=== PATIENT | male | born 1970 | race African-American/Black ===

== ENCOUNTER 2022-10-16 14:38 | Inpatient (IN) | payer OTHER, MEDICAID, SELFPAY ==
[2022-10-16] VITALS (25 sets, daily range): BP systolic 117–152; BP diastolic 64–102; PULSE 95–109; RESP 13–35; TEMP 36.8–39.6; O2SAT 88–100; BMI 46.2
--- NOTE | 2022-10-16 15:08 | DI.RAD.S_ITS ---
PROCEDURE: XR CHEST 1V INDICATIONS: chest pain TECHNIQUE: One view of the chest was acquired. COMPARISON: None. FINDINGS: Surgical changes and devices: None. Lungs and pleura: Lungs are clear. Hypoventilatory changes with crowding of the bronchovascular markings and basilar atelectasis. No pleural effusions or pneumothorax. Mediastinum: Mediastinal contours appear normal. Heart size is normal. Bones and chest wall: No suspicious bony lesions. Overlying soft tissues appear unremarkable. IMPRESSION: Hypoventilatory changes without evidence of an acute cardiopulmonary abnormality. Dictated by: Oni Alamo D.O. on 10/16/2022 at 15:09 Approved by: Oni Alamo D.O. on 10/16/2022 at 15:10
[2022-10-16 15:21] LABS: INR 1.4 (0.9-1.3); Prothrombin Time 15.6 SECONDS (10.1-12.7)
[2022-10-16 15:24] LABS: PTT Partial Thromboplastin Tim 33 SECONDS (26-36)
[2022-10-16 15:25] LABS: Add Manual Diff / Slide Review NO; Basophils Absolute Auto 200 /uL (0-100); Basophils Percent Auto 1.1 % (0-2); Eosinophils Absolute Auto 100 /uL (0-450); Eosinophils Percent Auto 0.4 % (2-4); Hematocrit 42.5 % (41-53); Hemoglobin 13.9 g/dL (13.5-17.5); Lymphocytes Absolute Auto 2500 /uL (1100-4500); Lymphocytes Percent Auto 17.6 % (25-40); Mean Corpuscular HGB Conc 32.8 % (30-36); Mean Corpuscular Hemoglobin 26.7 PG (26-34); Mean Corpuscular Volume 81.5 fL (80-100); Monocytes Absolute Auto 1200 /uL (0-900); Monocytes Percent Auto 8.4 % (3-14); Neutrophils Absolute Auto 10200 /uL (1500-7000); Neutrophils Percent Auto 72.5 % (50-75); Platelet Count 219 X10^3/uL (150-400); Red Blood Cell Count 5.21 X10^6/uL (4.5-5.9); Red Cell Distribution Width 12.5 % (11.6-14.8); White Blood Cell Count 14.1 X10^3/uL (4.5-11.0)
[2022-10-16 15:31] LABS: Lactate (Lactic Acid) 2.8 mmol/L (0.7-2.1)
[2022-10-16 15:33] LABS: Alanine Aminotransferase 24 IU/L (<50); Albumin 3.9 g/dL (3.5-5.0); Alkaline Phosphatase 154 U/L (38-126); Aspartate Aminotransferase 21 IU/L (17-59); Bilirubin Total 0.5 mg/dL (0.2-1.3); Blood Urea Nitrogen 12 mg/dL (9-20); Carbon Dioxide 27 mmol/L (22-32); Chloride 100 mmol/L (98-107); Creatine Kinase 216 U/L (55-170); Estimated Glomerular Filt Rate > 60 mL/min (>60); Globulin 4.1 g/dL (1.7-4.1); Glucose 334 mg/dL (70-100); HEMOLYSIS < 15 (0-50); Lipase 221 U/L (23-300); Magnesium 1.7 mg/dL (1.6-2.3); Potassium 4.1 mmol/L (3.4-5.1); Sodium 136 mmol/L (137-145)
[2022-10-16] MEDS: SODIUM CHLORIDE 0.9% 1,000 ML 1000 ML IV (15:39)
[2022-10-16 15:44] LABS: Troponin I < 0.012 ng/mL (0.01-0.034)
[2022-10-16 15:48] LABS: CKMB % Relative Index 0.4 % (1.5-5.0); Creatine Kinase MB 0.78 ng/mL (<2.37)
[2022-10-16 15:50] LABS: Procalcitonin 0.12 ng/mL (<0.5)
--- NOTE | 2022-10-16 15:50 | ED.CHESTPAIN ---
HPI - Chest Pain General Chief Complaint: Chest Pain Stated Complaint: Chest pain Time Seen by Provider: 10/16/22 15:23 Source: patient Mode of arrival: Wheelchair Limitations: no limitations History of Present Illness HPI narrative: 52-year-old male with history of diabetes, hypertension, dyslipidemia and prior DVT on Eliquis, patient notes he was on Lantus and regular acting insulin but has not been using it. He is still on oral medication for his diabetes. Patient presents with several complaints, left-sided chest for past week that has been intermittent with occasional shortness of breath. Denies radiation. He states he passes out but unclear if he means he falls asleep or actually passes out. He denies any falls. Patient states he has a known blood clot in his right leg and has been on Eliquis, he states he is had some increased swelling and pain in his left leg. Patient also notes he is had pain on the left lower abdomen for the past week with some fullness and it feels hard which he states is new and started having drainage that has been purulent in the past week. He denies fevers or chills. He denies nausea or vomiting. He denies diarrhea, constipation black or bloody stools. He denies any dysuria urgency frequency or difficulty with urination. He denies prior infections of his skin. Patient states no prior histories of strokes or heart attacks, no chronic kidney disease, denies any cardiac stents. Is not sure why he has a blood clot in his leg he states he was seen and taking care of [facility] in [place] where he lives. He drove up to visit family last night they wanted to bring him into the hospital at that time but he was not willing and today convinced him to come be seen. He states he has not allergy to lisinopril, anaphylaxis no tobacco denies alcohol or illicit. States his primary care is through [facility] in [place]. Patient states he is taking his Eliquis daily. Related Data Home Medications Medication Instructions Recorded Confirmed amlodipine 10 mg tablet 10 mg PO DAILY 10/16/22 10/16/22 apixaban 5 mg tablet (Eliquis) 5 mg PO DAILY 10/16/22 10/16/22 atorvastatin 40 mg tablet 80 mg PO BEDTIME 10/16/22 10/16/22 metformin 1,000 mg tablet 1,000 mg PO BID 10/16/22 10/16/22 sitagliptin phosphate 100 mg 100 mg PO DAILY 10/16/22 10/16/22 tablet (Januvia) Allergies Allergy/AdvReac Type Severity Reaction Status Date / Time lisinopril Allergy Anaphylaxis Verified 10/16/22 15:06 Review of Systems Review of Systems ROS Unobtainable: All systems reviewed & are unremarkable except as noted in HPI and below Patient History Medical History Diabetes Hypercholesteremia Hypertension Social History Smoking Status: Current every day smoker Smoking Status: Current every day smoker alcohol intake frequency: other Substance Use Type: does not use Exam Narrative Exam Narrative: GEN: Obese male, alert and oriented x 3, patient appears to be in [id number] distress. HEENT: Atraumatic, pupils are equal round reactive to light, extraocular movements are intact, nares are clear, there is no conjunctival pallor. HEART: Slightly tachycardic, 100-105 range, Regular rate and rhythm without murmur, clicks, rubs. LUNGS:Lungs clear to auscultation, no wheezes, rales, crackles, chest moves symmetrically, no tachypnea or accessory muscle use. ABD:bowel sounds normal, soft, patient is tender in left lower quadrant particularly underneath the pannus, patient has small opening with purulent drainage that drains easily when touched. Patient has some induration, difficult to tell size secondary to body habitus, no guarding, rebound, rigidity, no masses noted, no hepatosplenomegaly :No CVA tenderness MSCL: Non-tender, no muscle atrophy, range of motion. Patient has bilateral lower extremity edema, nonpitting with chronic venous stasis changes periods NEURO:CN 2-12 intact, sensation normal. SKIN: See above. Initial Vital Signs Initial Vital Signs: Vital Signs Temperature 98.6 F 10/16/22 14:59 Pulse Rate 102 H 10/16/22 14:59 Respiratory Rate 18 10/16/22 14:59 Blood Pressure 131/77 10/16/22 14:59 Pulse Oximetry 100 10/16/22 14:59 Oxygen Delivery Method Room Air 10/16/22 14:59 Course Orders Ordered: ED Orders 10/16/22 15:00 BNP [NT-proBNP (BNP-Adult 18+)] Stat Complete Blood Count AUTO DIFF Stat Comprehensive Metabolic Panel Stat Lactate (Lactic Acid) Stat Lipase Stat Magnesium Stat PTT Partial Thromboplastin Zac Stat Procalcitonin Stat Prothrombin Time INR Stat Troponin & CK Cardiac Panel Stat 10/16/22 15:08 XR chest 1V Stat Wound Culture and Gram Stain Stat 10/16/22 15:20 Blood Culture Stat 10/16/22 16:05 CT abdomen pelvis w con Stat CT angio chest PE protocol Stat 10/16/22 16:15 COVID19 -Nasal RAPID Stat Urinalysis and Microscopic Stat 10/16/22 17:11 EKG-12 Lead Stat 10/16/22 17:30 Trop I [Troponin I] Stat Discontinued Medications Aspirin (Aspirin 81 Mg Chew Tab) 324 mg PO NOW ONE Stop: 10/16/22 15:09 Last Admin: 10/16/22 16:28 Dose: Not Given Documented By: LUCIANO Sodium Chloride (Normal Saline 0.9%) 1,000 mls @ 1,000 mls/hr IV BOLUS ONE Stop: 10/16/22 16:35 Last Infusion: 10/16/22 16:37 Dose: 0 mls/hr Documented By: JOSE RAMON Admin: 10/16/22 15:39 Dose: 1,000 mls/hr Documented By: JOSE RAMON Piperacillin Sod/Tazobactam (Sod 4.5 gm/ Sodium Chloride) 100 mls @ 200 mls/hr IV NOW ONE Stop: 10/16/22 16:06 Last Infusion: 10/16/22 17:39 Dose: 0 mls/hr Documented By: Admin: 10/16/22 16:57 Dose: 200 mls/hr Documented By: LUCIANO Vancomycin HCl/Dextrose (Vancomycin) 2,000 mg in 400 mls @ 200 mls/hr IV NOW ONE Stop: 10/16/22 18:06 Last Admin: 10/16/22 17:39 Dose: 200 mls/hr Documented By: LUCIANO Vital Signs Vital signs: Vital Signs - 8 hr 10/16/22 14:59 10/16/22 15:08 10/16/22 15:15 Temperature 98.6 F Pulse Rate 102 H 101 H 103 H Respiratory Rate 18 25 H 32 H Blood Pressure 131/77 Pulse Oximetry 100 99 99 Oxygen Delivery Method Room Air 10/16/22 15:30 10/16/22 15:34 10/16/22 15:34 Temperature Pulse Rate 102 H 102 H Respiratory Rate 35 H 32 H Blood Pressure 137/73 Pulse Oximetry 99 97 Oxygen Delivery Method Room Air Room Air 10/16/22 15:45 10/16/22 15:45 10/16/22 16:00 Temperature Pulse Rate 109 H Respiratory Rate 27 H Blood Pressure 150/75 H 145/69 H Pulse Oximetry 100 Oxygen Delivery Method 10/16/22 16:00 10/16/22 16:15 10/16/22 16:15 Temperature Pulse Rate 107 H 105 H Respiratory Rate 20 15 Blood Pressure 146/68 H Pulse Oximetry 100 100 Oxygen Delivery Method 10/16/22 16:30 10/16/22 16:30 10/16/22 16:48 Temperature Pulse Rate 106 H 106 H Respiratory Rate 30 H Blood Pressure 143/65 H Pulse Oximetry 99 Oxygen Delivery Method 10/16/22 17:00 10/16/22 17:15 10/16/22 17:30 Temperature Pulse Rate 104 H 101 H 101 H Respiratory Rate 13 26 H 17 Blood Pressure Pulse Oximetry 100 99 100 Oxygen Delivery Method 10/16/22 17:39 10/16/22 17:39 10/16/22 17:45 Temperature Pulse Rate 104 H 107 H Respiratory Rate 26 H 20 Blood Pressure 149/82 H Pulse Oximetry 99 99 Oxygen Delivery Method 10/16/22 17:46 10/16/22 17:46 10/16/22 18:00 Temperature Pulse Rate 106 H Respiratory Rate Blood Pressure 148/102 H 133/76 Pulse Oximetry 99 Oxygen Delivery Method Room Air 10/16/22 18:00 Temperature Pulse Rate 101 H Respiratory Rate 26 H Blood Pressure Pulse Oximetry 100 Oxygen Delivery Method MDM - Chest Pain Lab Data 10/16/22 15:00 10/16/22 15:00 Labs: Lab Results 10/16/22 10/16/22 10/16/22 Range/Units 15:00 15:00 15:00 WBC 14.1 H (4.5-11.0) X10^3/uL RBC 5.21 (4.5-5.9) X10^6/uL Hgb 13.9 (13.5-17.5) g/dL Hct 42.5 (41-53) % MCV 81.5 (80-100) fL MCH 26.7 (26-34) PG MCHC 32.8 (30-36) % RDW 12.5 (11.6-14.8) % Plt Count 219 (150-400) X10^3/uL Neut % (Auto) 72.5 (50-75) % Lymph % (Auto) 17.6 L (25-40) % Brooke % (Auto) 8.4 (3-14) % Eos % (Auto) 0.4 L (2-4) % Baso % (Auto) 1.1 (0-2) % Neut # (Auto) 14471 H (6848-0913) /uL Lymph # (Auto) 2500 (7725-7003) /uL Brooke # (Auto) 1200 H (0-900) /uL Eos # (Auto) 100 (0-450) /uL Baso # (Auto) 200 H (0-100) /uL PT 15.6 H (10.1-12.7) SECONDS INR 1.4 H (0.9-1.3) APTT 33 (26-36) SECONDS Sodium 136 L (137-145) mmol/L Potassium 4.1 (3.4-5.1) mmol/L Chloride 100 (98-107) mmol/L Carbon Dioxide 27 (22-32) mmol/L BUN 12 (9-20) mg/dL Creatinine 0.80 (0.66-1.25) mg/dL Estimated GFR > 60 (>60) mL/min BUN/Creatinine Ratio 15.0 (6-22) Glucose 334 H (70-100) mg/dL Lactate (0.7-2.1) mmol/L Calcium 9.0 (8.4-10.2) mg/dL Magnesium 1.7 (1.6-2.3) mg/dL Total Bilirubin 0.5 (0.2-1.3) mg/dL AST 21 (17-59) IU/L ALT 24 (<50) IU/L Alkaline Phosphatase 154 H (38-126) U/L Total Creatine Kinase 216 H (55-170) U/L CK-MB (CK-2) 0.78 (<2.37) ng/mL CK-MB (CK-2) Rel Index 0.4 L (1.5-5.0) % Troponin I < 0.012 (0.01-0.034) ng/mL NT-Pro-B Natriuret Pep (<125) pg/mL Total Protein 8.0 (6.3-8.2) g/dL Albumin 3.9 (3.5-5.0) g/dL Globulin 4.1 (1.7-4.1) g/dL Albumin/Globulin Ratio 1.0 (1.0-2.8) Lipase 221 (23-300) U/L Procalcitonin (<0.5) ng/mL Urine Color Urine Appearance Urine pH (4.5-8.0) Ur Specific [place] (1.000-1.035) Urine Protein (Negative) Urine Glucose (UA) (Negative) g/dL Urine Ketones (NEGATIVE) Urine Occult Blood (Negative) Urine Nitrate (Negative) Urine Bilirubin (NEGATIVE) Urine Urobilinogen (0.2) E.U./dL Ur Leukocyte Esterase (NEGATIVE) Urine RBC (0-5/HPF) Urine WBC (0-5/HPF) Ur Squamous Epith Cells (0-5/HPF) Urine Bacteria (None) Ur Culture Indicated? SARS-CoV-2 (PCR) (Negative) 10/16/22 10/16/22 10/16/22 Range/Units 15:00 15:00 15:00 WBC (4.5-11.0) X10^3/uL RBC (4.5-5.9) X10^6/uL Hgb (13.5-17.5) g/dL Hct (41-53) % MCV (80-100) fL MCH (26-34) PG MCHC (30-36) % RDW (11.6-14.8) % Plt Count (150-400) X10^3/uL Neut % (Auto) (50-75) % Lymph % (Auto) (25-40) % Brooke % (Auto) (3-14) % Eos % (Auto) (2-4) % Baso % (Auto) (0-2) % Neut # (Auto) (6105-6807) /uL Lymph # (Auto) (0589-4792) /uL Brooke # (Auto) (0-900) /uL Eos # (Auto) (0-450) /uL Baso # (Auto) (0-100) /uL PT (10.1-12.7) SECONDS INR (0.9-1.3) APTT (26-36) SECONDS Sodium (137-145) mmol/L Potassium (3.4-5.1) mmol/L Chloride (98-107) mmol/L Carbon Dioxide (22-32) mmol/L BUN (9-20) mg/dL Creatinine (0.66-1.25) mg/dL Estimated GFR (>60) mL/min BUN/Creatinine Ratio (6-22) Glucose (70-100) mg/dL Lactate 2.8 H (0.7-2.1) mmol/L Calcium (8.4-10.2) mg/dL Magnesium (1.6-2.3) mg/dL Total Bilirubin (0.2-1.3) mg/dL AST (17-59) IU/L ALT (<50) IU/L Alkaline Phosphatase (38-126) U/L Total Creatine Kinase (55-170) U/L CK-MB (CK-2) (<2.37) ng/mL CK-MB (CK-2) Rel Index (1.5-5.0) % Troponin I (0.01-0.034) ng/mL NT-Pro-B Natriuret Pep 39 (<125) pg/mL Total Protein (6.3-8.2) g/dL Albumin (3.5-5.0) g/dL Globulin (1.7-4.1) g/dL Albumin/Globulin Ratio (1.0-2.8) Lipase (23-300) U/L Procalcitonin 0.12 (<0.5) ng/mL Urine Color Urine Appearance Urine pH (4.5-8.0) Ur Specific [place] (1.000-1.035) Urine Protein (Negative) Urine Glucose (UA) (Negative) g/dL Urine Ketones (NEGATIVE) Urine Occult Blood (Negative) Urine Nitrate (Negative) Urine Bilirubin (NEGATIVE) Urine Urobilinogen (0.2) E.U./dL Ur Leukocyte Esterase (NEGATIVE) Urine RBC (0-5/HPF) Urine WBC (0-5/HPF) Ur Squamous Epith Cells (0-5/HPF) Urine Bacteria (None) Ur Culture Indicated? SARS-CoV-2 (PCR) (Negative) 04/03/0210/16/22 10/16/22 Range/Units 16:15 16:15 17:30 WBC (4.5-11.0) X10^3/uL RBC (4.5-5.9) X10^6/uL Hgb (13.5-17.5) g/dL Hct (41-53) % MCV (80-100) fL MCH (26-34) PG MCHC (30-36) % RDW (11.6-14.8) % Plt Count (150-400) X10^3/uL Neut % (Auto) (50-75) % Lymph % (Auto) (25-40) % Brooke % (Auto) (3-14) % Eos % (Auto) (2-4) % Baso % (Auto) (0-2) % Neut # (Auto) (0188-4571) /uL Lymph # (Auto) (1589-7639) /uL Brooke # (Auto) (0-900) /uL Eos # (Auto) (0-450) /uL Baso # (Auto) (0-100) /uL PT (10.1-12.7) SECONDS INR (0.9-1.3) APTT (26-36) SECONDS Sodium (137-145) mmol/L Potassium (3.4-5.1) mmol/L Chloride (98-107) mmol/L Carbon Dioxide (22-32) mmol/L BUN (9-20) mg/dL Creatinine (0.66-1.25) mg/dL Estimated GFR (>60) mL/min BUN/Creatinine Ratio (6-22) Glucose (70-100) mg/dL Lactate (0.7-2.1) mmol/L Calcium (8.4-10.2) mg/dL Magnesium (1.6-2.3) mg/dL Total Bilirubin (0.2-1.3) mg/dL AST (17-59) IU/L ALT (<50) IU/L Alkaline Phosphatase (38-126) U/L Total Creatine Kinase (55-170) U/L CK-MB (CK-2) (<2.37) ng/mL CK-MB (CK-2) Rel Index (1.5-5.0) % Troponin I < 0.012 (0.01-0.034) ng/mL NT-Pro-B Natriuret Pep (<125) pg/mL Total Protein (6.3-8.2) g/dL Albumin (3.5-5.0) g/dL Globulin (1.7-4.1) g/dL Albumin/Globulin Ratio (1.0-2.8) Lipase (23-300) U/L Procalcitonin (<0.5) ng/mL Urine Color Yellow Urine Appearance Clear Urine pH 6.0 (4.5-8.0) Ur Specific [place] 1.010 (1.000-1.035) Urine Protein Negative (Negative) Urine Glucose (UA) 3+ H (Negative) g/dL Urine Ketones Negative (NEGATIVE) Urine Occult Blood Negative (Negative) Urine Nitrate Negative (Negative) Urine Bilirubin Negative (NEGATIVE) Urine Urobilinogen 4.0 H (0.2) E.U./dL Ur Leukocyte Esterase Negative (NEGATIVE) Urine RBC 0-1/hpf (0-5/HPF) Urine WBC 1-5/hpf (0-5/HPF) Ur Squamous Epith Cells 1-5 /hpf (0-5/HPF) Urine Bacteria Occasional (0-1) (None) Ur Culture Indicated? Cult not indicated SARS-CoV-2 (PCR) Negative (Negative) 10/16/22 Range/Units 17:30 WBC (4.5-11.0) X10^3/uL RBC (4.5-5.9) X10^6/uL Hgb (13.5-17.5) g/dL Hct (41-53) % MCV (80-100) fL MCH (26-34) PG MCHC (30-36) % RDW (11.6-14.8) % Plt Count (150-400) X10^3/uL Neut % (Auto) (50-75) % Lymph % (Auto) (25-40) % Brooke % (Auto) (3-14) % Eos % (Auto) (2-4) % Baso % (Auto) (0-2) % Neut # (Auto) (5267-6922) /uL Lymph # (Auto) (5947-5137) /uL Brooke # (Auto) (0-900) /uL Eos # (Auto) (0-450) /uL Baso # (Auto) (0-100) /uL PT (10.1-12.7) SECONDS INR (0.9-1.3) APTT (26-36) SECONDS Sodium (137-145) mmol/L Potassium (3.4-5.1) mmol/L Chloride (98-107) mmol/L Carbon Dioxide (22-32) mmol/L BUN (9-20) mg/dL Creatinine (0.66-1.25) mg/dL Estimated GFR (>60) mL/min BUN/Creatinine Ratio (6-22) Glucose (70-100) mg/dL Lactate 3.5 H (0.7-2.1) mmol/L Calcium (8.4-10.2) mg/dL Magnesium (1.6-2.3) mg/dL Total Bilirubin (0.2-1.3) mg/dL AST (17-59) IU/L ALT (<50) IU/L Alkaline Phosphatase (38-126) U/L Total Creatine Kinase (55-170) U/L CK-MB (CK-2) (<2.37) ng/mL CK-MB (CK-2) Rel Index (1.5-5.0) % Troponin I (0.01-0.034) ng/mL NT-Pro-B Natriuret Pep (<125) pg/mL Total Protein (6.3-8.2) g/dL Albumin (3.5-5.0) g/dL Globulin (1.7-4.1) g/dL Albumin/Globulin Ratio (1.0-2.8) Lipase (23-300) U/L Procalcitonin (<0.5) ng/mL Urine Color Urine Appearance Urine pH (4.5-8.0) Ur Specific [place] (1.000-1.035) Urine Protein (Negative) Urine Glucose (UA) (Negative) g/dL Urine Ketones (NEGATIVE) Urine Occult Blood (Negative) Urine Nitrate (Negative) Urine Bilirubin (NEGATIVE) Urine Urobilinogen (0.2) E.U./dL Ur Leukocyte Esterase (NEGATIVE) Urine RBC (0-5/HPF) Urine WBC (0-5/HPF) Ur Squamous Epith Cells (0-5/HPF) Urine Bacteria (None) Ur Culture Indicated? SARS-CoV-2 (PCR) (Negative) Imaging Data Chest x-ray: Radiologist's Impression: [address] [address] XRay Report Signed Patient: Oni Cabezas MR#: [id number] : 1970 Acct:[id number] Age/Sex: 52 / M Date of Service: 10/16/22 Loc: ED Accession Number: [id number] ?? Procedure: XR chest 1V Ordering Provider: Nabila Degroot D.O. PROCEDURE:? XR CHEST 1V ? INDICATIONS:? chest pain ? TECHNIQUE:? One view of the chest was acquired.? ? COMPARISON:? None. ? FINDINGS:? ? Surgical changes and devices:? None.? ? Lungs and pleura:? Lungs are clear.? Hypoventilatory changes with crowding of the bronchovascular markings and basilar atelectasis.? No pleural effusions or pneumothorax.? ? ? Mediastinum:? Mediastinal contours appear normal.? Heart size is normal.? ? Bones and chest wall:? No suspicious bony lesions.? Overlying soft tissues appear unremarkable.? ? IMPRESSION:? ? Hypoventilatory changes without evidence of an acute cardiopulmonary abnormality. ? ? Dictated by: Oni Alamo D.O. on 10/16/2022 at 15:09 ? ? Approved by: Oni Alamo D.O. on 10/16/2022 at 15:10?? ECG Data Attestation: I personally reviewed and interpreted this ECG as follows: Prior ECG tracings: not available for review Interpretation: Sinus tachycardia rate of 102 PA 158 QRS of [address]TC [address] No acute ST elevation or depression. No prior for comparison. Sinus tachycardia rate of 103 PA 158 QRS of 104 and QTC of 474. Patient does not have any acute or dynamic changes appear similar to prior EKG from earlier today. MDM Narrative Medical decision making narrative: This is a 52-year-old male diabetic, hypertension, dyslipidemia, chronic obesity outpatient has had significant weight loss over the years. Patient presents with chest pain, shortness of breath as well as abdominal pain and area of what is likely abscess draining. Culture was sent from the site. Patient's initial workup included CBC, CMP, INR these do not show major changes except for glucose of 338, anion gap of 9 with a CO2 of 27, LFTs were negative except for alk-phos of 154, total CK was 214- troponin and BNP was 39. Pro CT was negative at 0.12, patient did have blood cultures obtained, wound culture was sent from the site on his left lower abdomen. Lactate was elevated at 2.8. EKG has sinus tachycardia, no priors for comparison. Chest x-ray shows hypoventilated or changes no clear infection. Patient does have a known prior blood clot in his right lower extremity he has noted some pain in his left leg as well as swelling. Plan for CT angio of his chest for his chest pain and shortness of breath to rule out PE and repeat troponin at hours. along with EKG, troponins negative. No dynamic EKG changes. Secondary to habitus other is an area that is draining unclear the size so CT abdomen pelvis was obtained. Patient received a L bolus but does have some risk for CHF so not given a full 30 cc/kilos bolus, covered with antibiotics Zosyn and vanco. CT chest nondiagnostic for PE, Hounsfield units were only 74. No other acute changes appreciated no right heart strain. CT abdomen pelvis does not show loculated fluid collection or fluid collection but does show changes consistent with a cellulitis with a no other acute intra-abdominal processes noted. Patient has not been hypotensive he has been slightly tachycardic the whole time, no hypoxia, afebrile but lactate did trend upwards. Case was discussed with Dr. Whitaker who accepts for admission. Reviewed CT findings patient has negative troponin negative BNP has been stated taking his Eliquis regularly she will evaluate the patient decide if she wants repeat CT scan but felt to be less likely source of his tachycardia and sepsis likely source. Accepted for inpatient admission. Discharge Plan Departure Patient Disposition: Admitted As Inpatient Clinical Impression: Cellulitis of abdominal wall, Sepsis Admit Date/Time: 10/16/22 18:11 Admit Provider: Anna Whitaker
[2022-10-16 16:04] LABS: NT-proBNP (BNP-Adult 18+) 39 pg/mL (<125)
--- NOTE | 2022-10-16 16:05 | DI.CT.S_ITS ---
PROCEDURE: CT ANGIO CHEST PE PROTOCOL INDICATIONS: cp, sob, hx of dvt TECHNIQUE: After the administration of intravenous contrast, 2 mm thick sections acquired from the pulmonary apices to the posterior costophrenic angles. 3-dimensional maximum intensity projection (MIP) coronal and sagittal reformats were then acquired through the thorax. For radiation dose reduction, the following was used: automated exposure control, adjustment of mA and/or kV according to patient size. COMPARISON: [facility], CT, CT ABDOMEN PELVIS W CON, 10/16/2022, 16:09. FINDINGS: Image quality: Nondiagnostic for exclusion of pulmonary embolus given Hounsfield units within the main pulmonary artery only measures 74 Hounsfield units. Pulmonary arteries: Pulmonary arteries are normal in size. Lungs and pleura: Lungs are clear. No pleural effusions or pneumothorax. Central and peripheral airways are patent. Punctate left upper lobe calcified granuloma. No suspicious nodules. Mediastinum: Heart size is normal, without pericardial effusion. No evidence of right heart strain. No mediastinal or hilar adenopathy. Thoracic aorta is normal in caliber and enhancement. Esophagus is normal in caliber, without hiatal hernia. Bones and chest wall: No suspicious bony lesions. Ribs and thoracic spine appear intact throughout. Thyroid gland is unremarkable. No axillary or supraclavicular adenopathy. Abdomen: Nodularity of the right adrenal gland measuring greater than 10 Hounsfield units. Please see same day CT abdomen pelvis for further findings. IMPRESSION: Inadequate study for evaluation of pulmonary embolus. No evidence of right heart strain. If clinically warranted, consider repeat. Otherwise no evidence of an acute intrathoracic abnormality. Dictated by: Oni Alamo D.O. on 10/16/2022 at 16:18 Approved by: Oni Alamo D.O. on 10/16/2022 at 16:28
--- NOTE | 2022-10-16 16:05 | DI.CT.S_ITS ---
PROCEDURE: CT ABDOMEN PELVIS W CON INDICATIONS: left sided abd wall vs intra ? abscess, + driainage. TECHNIQUE: After the administration of intravenous contrast, axial sections acquired from the lung bases to the pubic symphysis. Coronal and sagittal reformats were performed. For radiation dose reduction, the following was used: automated exposure control, adjustment of mA and/or kV according to patient size. COMPARISON: None. FINDINGS: Image quality: Excellent. Lung bases: Unremarkable. Heart: No significant findings. ABDOMEN: Liver: Unremarkable. Gallbladder: Unremarkable Biliary ducts: Unremarkable. Pancreas: Unremarkable. Spleen: Punctate calcifications consistent with prior granulomatous disease. Adrenal Glands: Right adrenal gland nodule measuring 3.0 x 2.0 cm measuring approximately 28 Hounsfield units. The left adrenal gland is unremarkable. Kidneys and Ureters: Fluid density cystic lesion within the anterior interpolar region of the left kidney consistent with a simple cyst. No suspicious abnormality. No hydronephrosis. Stomach and Bowel: Stomach and small bowel are unremarkable. No evidence of obstruction. Moderate to the advance stool burden throughout the colon. No wall thickening or surrounding inflammation. No ascites or pneumoperitoneum. Peritoneum: No abnormal intraperitoneal fluid. No free air. Ventral Wall: Large fat containing umbilical hernia. Abdominal Nodes: No retroperitoneal or mesenteric adenopathy by size criteria. Vessels: Aorta and inferior vena cava are normal in size. PELVIS: Pelvic Organs: Unremarkable. Bladder: Unremarkable. Pelvic Nodes: No enlarged lymph nodes. Miscellaneous: Nonspecific soft tissue stranding noted within the left flank extending to the inguinal region. There are a few mildly enlarged inguinal lymph nodes. Bones: Degenerative changes without acute osseous abnormality or aggressive appearing osseous lesion. IMPRESSION: Non-specific soft tissue inflammation overlying the left flank extending into the left inguinal region with likely reactive inguinal adenopathy. Recommend clinical correlation for infectious or inflammatory process. No focal fluid to suggest abscess. Large periumbilical fat containing hernia. Indeterminate 3 cm right adrenal nodule. Recommend dedicated outpatient adrenal CT or MRI. Dictated by: Oni Alamo D.O. on 10/16/2022 at 16:28 Approved by: Oni Alamo D.O. on 10/16/2022 at 16:36
[2022-10-16 16:46] LABS: Appearance Urine UA CLEAR; Bilirubin Urine UA NEGATIVE (NEGATIVE); Color Urine UA YELLOW; Glucose Urine UA 3+ g/dL (Negative); Ketones Urine UA NEGATIVE (NEGATIVE); Leukocyte Esterase Urine UA NEGATIVE (NEGATIVE); Nitrite Urine UA NEGATIVE (Negative); Occult Blood Urine UA NEGATIVE (Negative); Protein Urine UA NEGATIVE (Negative)
[2022-10-16 16:50] LABS: Bacteria Urine Occasional (0-1); Culture Indicated Urine Cult Not Indicated; RBC Urine 0-1/HPF (0-5/HPF); Squamous Epithelial Cell Urine 1-5 /HPF (0-5/HPF); WBC Urine 1-5/HPF (0-5/HPF)
[2022-10-16 16:52] LABS: COVID19 -Nasal RAPID Negative (Negative)
[2022-10-16] MEDS: PIPERACILLIN/TAZO 4.5 GM in SODIUM CHLORIDE 0.9% 100 ML IV (16:57)
[2022-10-16 17:13] LABS: Reflexed Lactate in 2 Hours Y
[2022-10-16] MEDS: VANCOMYCIN 2,000 MG/400 ML PIGGYBACK 200 MG IV (17:39)
[2022-10-16 17:47] LABS: Lactate 2HR (Lactic Acid Rflx) 3.5 mmol/L (0.7-2.1)
[2022-10-16 17:59] LABS: Troponin I < 0.012 ng/mL (0.01-0.034)
[2022-10-16] MEDS: HYDROCODONE/ACET 5/325 TABLET 1 TAB PO (20:38)
--- NOTE | 2022-10-16 20:50 | P.HP_ITS ---
History of Present Illness History of Present Illness Date Patient Seen: 10/16/22 Time Patient Seen: 20:50 Chief complaint: Chest pain Narrative: Oni Cabezas is a 52-year-old male with history of insulin-dependent diabetes, hypertension, dyslipidemia, prior DVT (rtLE) on Eliquis presented to ED with several complaints, left-sided chest pain, intermittent shortness of breath, fever, body aches, chills, nausea increased urination, urinary incontinence, worsening left lower abdominal pain fullness/hard with drainage x 1 week, some increased swelling and pain in his left leg. Patient's states that the patient has been noncompliant with medications. Reports last A1c 14 - approximately 2 months ago. He denies prior infections of his skin.? Patient states no prior histories of strokes or heart attacks, no chronic kidney disease, denies any cardiac stents. Lives in [place], here visiting family.?Allergy to lisinopril-anaphylaxis. States his primary care is through [facility] in [place].? On admit patient continues to complain abdominal pain, the fever of 103.9, 148/102, 106, 26, O2 sat 100% on room air, patient is in moderate distress and pain. Continues to complain of fever, body aches, chills, nausea, abdominal pain. WBC 14.1, neutrophils 10,200, mono 1200, baso 200, initial lactate 2.8, repeat 3.5, procalcitonin negative, glucose 334, PT 15.6, INR 1 4, alk-phos 154, CK 216, BNP normal, COVID negative, UA negative, troponin x2 negative patient meets severe sepsis criteria for SIRS, sofa score 0. No gap patient is not in DKA CTA was reported as unreasonable to rule out PE, abdomen/pelvis CT soft tissue inflammation overlying left flank extending into the left inguinal region with reactive inguinal?adenopathy, large periumbilical fat containing hernia, and Indeterminate 3 cm right adrenal nodule. Chest x-ray hypoventilation. I pers onally reviewed all imaging studies and EKG. EKG: Sinus tachycardia rate [address] or T-wave changes. On admit patient denies changes in vision, difficulty swallowing, speech impairment, weakness, numbness, tingling, difficulty with ambulation, recent falls, head injury, LOC, cough, recent exposure to illness, vomiting, urinary retention, dysuria, hematuria, bowel changes, constipation, incontinence, melena, rashes, recent changes to medication, illness, injury, or trauma. Patient admitted for chest pain, sepsis secondary to abdominal cellulitis abscess, hyperglycemia. [facility] Medical History Diabetes Dyslipidemia associated with type 2 diabetes mellitus Essential hypertension History of DVT of lower extremity Hypercholesteremia Hypertension Surgical History History of circumcision Family History Mother Cancer Hypertension Diabetes mellitus Father No problems noted. Social History household members: significant other Smoking Status: Current every day smoker alcohol intake: never Comment: hx care home Meds Home Medications and Allergies Home Medications Medication Instructions Recorded Confirmed Type amlodipine 10 mg tablet 10 mg PO DAILY 10/16/22 10/16/22 History apixaban 5 mg tablet (Eliquis) 5 mg PO DAILY 10/16/22 10/16/22 History atorvastatin 40 mg tablet 80 mg PO BEDTIME 10/16/22 10/16/22 History metformin 1,000 mg tablet 1,000 mg PO BID 10/16/22 10/16/22 History sitagliptin phosphate 100 mg 100 mg PO DAILY 10/16/22 10/16/22 History tablet (Januvia) Allergies Allergy/AdvReac Type Severity Reaction Status Date / Time lisinopril Allergy Anaphylaxis Verified 10/16/22 15:06 Review of Systems Review of Systems Narrative: All 12 point systems reviewed with the patient and are negative except otherwise documented. Exam Vital Signs (past 8 hours): - 10/16/22 14:59 10/16/22 15:08 10/16/22 15:15 Temperature 98.6 F Pulse Rate 102 H 101 H 103 H Respiratory Rate 18 25 H 32 H Blood Pressure 131/77 Pulse Oximetry 100 99 99 Oxygen Delivery Method Room Air Oxygen Flow Rate 10/16/22 15:30 10/16/22 15:34 10/16/22 15:34 Temperature Pulse Rate 102 H 102 H Respiratory Rate 35 H 32 H Blood Pressure 137/73 Pulse Oximetry 99 97 Oxygen Delivery Method Room Air Room Air Oxygen Flow Rate 10/16/22 15:45 10/16/22 15:45 10/16/22 16:00 Temperature Pulse Rate 109 H Respiratory Rate 27 H Blood Pressure 150/75 H 145/69 H Pulse Oximetry 100 Oxygen Delivery Method Oxygen Flow Rate 10/16/22 16:00 10/16/22 16:15 10/16/22 16:15 Temperature Pulse Rate 107 H 105 H Respiratory Rate 20 15 Blood Pressure 146/68 H Pulse Oximetry 100 100 Oxygen Delivery Method Oxygen Flow Rate 10/16/22 16:30 10/16/22 16:30 10/16/22 16:48 Temperature Pulse Rate 106 H 106 H Respiratory Rate 30 H Blood Pressure 143/65 H Pulse Oximetry 99 Oxygen Delivery Method Oxygen Flow Rate 10/16/22 17:00 10/16/22 17:15 10/16/22 17:30 Temperature Pulse Rate 104 H 101 H 101 H Respiratory Rate 13 26 H 17 Blood Pressure Pulse Oximetry 100 99 100 Oxygen Delivery Method Oxygen Flow Rate 10/16/22 17:39 10/16/22 17:39 10/16/22 17:45 Temperature Pulse Rate 104 H 107 H Respiratory Rate 26 H 20 Blood Pressure 149/82 H Pulse Oximetry 99 99 Oxygen Delivery Method Oxygen Flow Rate 10/16/22 17:46 10/16/22 17:46 10/16/22 18:00 Temperature Pulse Rate 106 H Respiratory Rate Blood Pressure 148/102 H 133/76 Pulse Oximetry 99 Oxygen Delivery Method Room Air Oxygen Flow Rate 10/16/22 18:00 10/16/22 18:15 10/16/22 18:15 Temperature Pulse Rate 101 H 100 H Respiratory Rate 26 H 28 H Blood Pressure 141/83 H Pulse Oximetry 100 95 Oxygen Delivery Method Oxygen Flow Rate 10/16/22 18:30 Temperature 98.5 F Pulse Rate 104 H Respiratory Rate 21 Blood Pressure 152/96 H Pulse Oximetry 100 Oxygen Delivery Method Oxygen Flow Rate 0 Oxygen Delivery Method Room Air Oxygen Flow Rate 0 Narrative Exam Narrative: General: Patient is a male in in moderate pain and distress at this time. HEENT: Normocephalic, atraumatic, extraocular muscles intact, oral pharynx is clear and mucous membranes are dry . Neck is supple and symmetric, trachea is midline, no adenopathy, no thyroid enlargement, nontender, no masses palpated. Negative for JVD Chest: Normal AP diameter and contour without kyphoscoliosis, no nasal flaring, retractions, or tachypneic labored Lungs: Auscultation of all lung deluca are clear without adventitious sounds, wheezes, rhonchi, or rales. Cardio: S1 & S2 with regular rate and rhythm without murmur, rubs, or gallops, no carotid bruit, no cardiac pulsations present. Abdomen: severe tenderness in left lower quadrant particularly underneath the pannus, small open wound with purulent drainage that drains easily when touched, some induration, difficult to tell size secondary to body habitus, Bowel sounds are present in all 4 quadrants without guarding or rebound, no CVA tenderness. Musculoskeletal: Muscle strength and tone are equal within normal limits, no deformity, crepitus, effusions, cyanosis, clubbing. Bilateral lower extremity edema nonpitting, chronic venous stasis. Full range of motion intact radial and pedal pulses are normal. Skin: Hot, dry and intact without rashes, ulcerations or petechiae. Neuro: Alert and orientated x3, although doses off frequently, is in moderate pain, and avoids eye contact for the majority admit exam, moves all extremities, sensation to touch intact, no gross deficits noted of cranial nerves. Psych: Patient has a well-kept appearance, appropriate affect, mental status attitude thought context and judgment are appropriate for age. Objective Labs 10/16/22 15:00 10/16/22 15:00 Labs: Laboratory Results - last 24 hr 10/16/22 10/16/22 10/16/22 15:00 15:00 15:00 WBC 14.1 H RBC 5.21 Hgb 13.9 Hct 42.5 MCV 81.5 MCH 26.7 MCHC 32.8 RDW 12.5 Plt Count 219 Neut % (Auto) 72.5 Lymph % (Auto) 17.6 L [place] % (Auto) 8.4 Eos % (Auto) 0.4 L Baso % (Auto) 1.1 Neut # (Auto) 83763 H Lymph # (Auto) 2500 [place] # (Auto) 1200 H Eos # (Auto) 100 Baso # (Auto) 200 H PT 15.6 H INR 1.4 H APTT 33 Sodium 136 L Potassium 4.1 Chloride 100 Carbon Dioxide 27 BUN 12 Creatinine 0.80 Estimated GFR > 60 BUN/Creatinine Ratio 15.0 Glucose 334 H Lactate Calcium 9.0 Magnesium 1.7 Total Bilirubin 0.5 AST 21 ALT 24 Alkaline Phosphatase 154 H Total Creatine Kinase 216 H CK-MB (CK-2) 0.78 CK-MB (CK-2) Rel Index 0.4 L Troponin I < 0.012 NT-Pro-B Natriuret Pep Total Protein 8.0 Albumin 3.9 Globulin 4.1 Albumin/Globulin Ratio 1.0 Lipase 221 Procalcitonin Urine Color Urine Appearance Urine pH Ur Specific [place] Urine Protein Urine Glucose (UA) Urine Ketones Urine Occult Blood Urine Nitrate Urine Bilirubin Urine Urobilinogen Ur Leukocyte Esterase Urine RBC Urine WBC Ur Squamous Epith Cells Urine Bacteria Ur Culture Indicated? SARS-CoV-2 (PCR) 10/16/22 10/16/22 10/16/22 15:00 15:00 15:00 WBC RBC Hgb Hct MCV MCH MCHC RDW Plt Count Neut % (Auto) Lymph % (Auto) [place] % (Auto) Eos % (Auto) Baso % (Auto) Neut # (Auto) Lymph # (Auto) [place] # (Auto) Eos # (Auto) Baso # (Auto) PT INR APTT Sodium Potassium Chloride Carbon Dioxide BUN Creatinine Estimated GFR BUN/Creatinine Ratio Glucose Lactate 2.8 H Calcium Magnesium Total Bilirubin AST ALT Alkaline Phosphatase Total Creatine Kinase CK-MB (CK-2) CK-MB (CK-2) Rel Index Troponin I NT-Pro-B Natriuret Pep 39 Total Protein Albumin Globulin Albumin/Globulin Ratio Lipase Procalcitonin 0.12 Urine Color Urine Appearance Urine pH Ur Specific [place] Urine Protein Urine Glucose (UA) Urine Ketones Urine Occult Blood Urine Nitrate Urine Bilirubin Urine Urobilinogen Ur Leukocyte Esterase Urine RBC Urine WBC Ur Squamous Epith Cells Urine Bacteria Ur Culture Indicated? SARS-CoV-2 (PCR) 10/16/22 10/16/22 10/16/22 16:15 16:15 17:30 WBC RBC Hgb Hct MCV MCH MCHC RDW Plt Count Neut % (Auto) Lymph % (Auto) [place] % (Auto) Eos % (Auto) Baso % (Auto) Neut # (Auto) Lymph # (Auto) [place] # (Auto) Eos # (Auto) Baso # (Auto) PT INR APTT Sodium Potassium Chloride Carbon Dioxide BUN Creatinine Estimated GFR BUN/Creatinine Ratio Glucose Lactate Calcium Magnesium Total Bilirubin AST ALT Alkaline Phosphatase Total Creatine Kinase CK-MB (CK-2) CK-MB (CK-2) Rel Index Troponin I < 0.012 NT-Pro-B Natriuret Pep Total Protein Albumin Globulin Albumin/Globulin Ratio Lipase Procalcitonin Urine Color Yellow Urine Appearance Clear Urine pH 6.0 Ur Specific [place] 1.010 Urine Protein Negative Urine Glucose (UA) 3+ H Urine Ketones Negative Urine Occult Blood Negative Urine Nitrate Negative Urine Bilirubin Negative Urine Urobilinogen 4.0 H Ur Leukocyte Esterase Negative Urine RBC 0-1/hpf Urine WBC 1-5/hpf Ur Squamous Epith Cells 1-5 /hpf Urine Bacteria Occasional (0-1) Ur Culture Indicated? Cult not indicated SARS-CoV-2 (PCR) Negative 10/16/22 17:30 WBC RBC Hgb Hct MCV MCH MCHC RDW Plt Count Neut % (Auto) Lymph % (Auto) [place] % (Auto) Eos % (Auto) Baso % (Auto) Neut # (Auto) Lymph # (Auto) [place] # (Auto) Eos # (Auto) Baso # (Auto) PT INR APTT Sodium Potassium Chloride Carbon Dioxide BUN Creatinine Estimated GFR BUN/Creatinine Ratio Glucose Lactate 3.5 H Calcium Magnesium Total Bilirubin AST ALT Alkaline Phosphatase Total Creatine Kinase CK-MB (CK-2) CK-MB (CK-2) Rel Index Troponin I NT-Pro-B Natriuret Pep Total Protein Albumin Globulin Albumin/Globulin Ratio Lipase Procalcitonin Urine Color Urine Appearance Urine pH Ur Specific [place] Urine Protein Urine Glucose (UA) Urine Ketones Urine Occult Blood Urine Nitrate Urine Bilirubin Urine Urobilinogen Ur Leukocyte Esterase Urine RBC Urine WBC Ur Squamous Epith Cells Urine Bacteria Ur Culture Indicated? SARS-CoV-2 (PCR) Assessment & Plan Assessment & Plan narrative: Oni Cabezas is a 52-year-old male with history of insulin-dependent diabetes, hypertension, dyslipidemia, prior DVT (rtLE) on Eliquis presented to ED with several complaints, left-sided chest pain, intermittent shortness of breath, fever, body aches, chills, nausea increased urination, urinary incontinence, worsening left lower abdominal pain fullness/hard with drainage x 1 week, some increased swelling and pain in his left leg. Patient admitted for chest pain, sepsis secondary to abdominal cellulitis abscess, hyperglycemia. Patient will require admit to hospital for IV hydration, IV antibiotics, evaluation of abscess cellulitis, chest pain rule out, rule out PE/DVTs, stabilize blood sugars, and resolution of sepsis. 1. Sepsis without shock secondary to lower left abdominal abscess/cellulitis, secondary complication of uncontrolled diabetes, acute, present on admission -meets severe sepsis criteria for SIRS, sofa score 0 -admit:temp 103.9, 148/102, 106, 26, O2 sat 100% on room air, patient is in moderate distress and pain. Continues to complain of fever, body aches, chills, nausea, abdominal pain. -WBC 14.1, neutrophils 10,200, mono 1200, baso 200, initial lactate 2.8, repeat 3.5, procalcitonin negative, -abdomen/pelvis CT soft tissue inflammation overlying left flank extending into the left inguinal region with reactive inguinal?adenopathy, large periumbilical fat containing hernia, and Indeterminate 3 cm right adrenal nodule. -COVID negative, UA negative, -ordered MRSA, wound and blood cultures pending -manage pain, fever, and antiemetics -abdominal ultrasound-will consult general surgery based on results -ED sepsis bolus fluids, vanco and Zosyn -continue patient on NS at 100 cc/HR, vancomycin, meropenem -PT 15.6, INR 1 4 -alk-phos 154, CK 216-Ordered GGT 2. Chest pain with shortness of breaths, acute, present on admission -left-sided nonradiating -CTA was reported as unreadable to rule out PE-ordered repeat CTA to rule out PE tomorrow -troponin x2 negative, trend x 3 -EKG: Sinus tachycardia rate [address] or T-wave changes. -admitted under chest pain rule out protocol -echo and non NM stress test odered -Lipitor -BNP normal 3. Dyslipidemia secondary to insulin-dependent type 2 diabetes, uncontrolled with hyperglycemia, acute on chronic, present on admission -glucose 334, No gap/ DKA - reported that last A1c 14 -patient admitted under diabetic protocol, A1c ordered -continue Lantus, Lipitor hold Januvia and metformin, high dose sliding scale for coverage 4. Hypertension, essential, present on admission -admit 148/102-has now normalized 132/69 -continue amlodipine 5. History of right lower extremity DVT on Eliquis, chronic, present on admission - reports that patient has been noncompliant with his Eliquis -patient complaining of left leg swelling and pain -ordered bilateral lower extremity ultrasound to rule out DVT -continue Eliquis 6. Obesity, moderate, acute on chronic, present on admission -BMI 46.2 -dietary consult ordered regarding nutritional education and information for dietary, lifestyle, exercise, and weight changes. -the patient is at much higher risk for medical and surgical complications due to obesity as it relates to chronic illnesses:, and acute illness. The patient's obesity increases the difficulty and complexity of medical and/or surgical interventions, management and increases the chances of poor outcome such as morbidity and mortality as well as impaired wound healing. Code status: Full Surrogate decision maker: Ivelisse MURRAY PCR: Negative DVT/VTE prophylaxis: Eliquis and SCDs Disposition: Patient admitted to acute care expected length of stay greater than 2 midnights. I have utilized all available immediate resources to obtain, update, or review the patient's current medications. I confirmed that the patient's advanced care plan is present, Code status is documented and/or surrogate decision maker is listed in the patient's medical record. I have personally reviewed patient's chart notes from PCP, specialists, [facility], and laboratory results. . Quality VTE Deep Vein Thrombosis/Pulmonary Embolism Present on Admission: No
[2022-10-16 21:55] LABS: C-Reactive Protein Quant 17.1 mg/dL (<1.0)
[2022-10-16 21:57] LABS: Erythrocyte Sedimentation Rate 46 MM/HR (0-15)
[2022-10-16] MEDS: SODIUM CHLORIDE 0.9% 1,000 ML 150 ML IV (22:00)
[2022-10-16] MEDS: ACETAMINOPHEN 325 MG TABLET 975 MG PO (22:05)
[2022-10-16] MEDS: APIXABAN 5 MG TABLET PO (22:06)
[2022-10-16] MEDS: ATORVASTATIN 20 MG TABLET 80 MG PO (22:06)
[2022-10-16] MEDS: INSULIN LISPRO 100 UNIT/ML 3ML VIAL SUBCUT (22:14)
[2022-10-16] MEDS: INSULIN GLARGINE 100 UNIT/ML 3ML PEN 20 UNIT SUBCUT (22:14)
[2022-10-17] VITALS (7 sets, daily range): BP systolic 120–133; BP diastolic 68–77; PULSE 87–98; RESP 20–27; TEMP 36.2–37.5; O2SAT 95–99
[2022-10-17] MEDS: MEROPENEM 500 MG in SODIUM CHLORIDE 0.9% 100 ML 200 MG IV ×2 (00:11→09:31)
[2022-10-17 01:05] LABS: MRSA (Nasal) PCR Not Detected (Not Detect)
[2022-10-17] MEDS: SODIUM CHLORIDE 0.9% 1,000 ML 150 ML IV ×3 (03:00→23:31)
[2022-10-17 07:21] LABS: Add Manual Diff / Slide Review NO; Basophils Absolute Auto 100 /uL (0-100); Basophils Percent Auto 0.6 % (0-2); Eosinophils Absolute Auto 100 /uL (0-450); Eosinophils Percent Auto 0.6 % (2-4); Hematocrit 35.1 % (41-53); Hemoglobin 11.6 g/dL (13.5-17.5); Lymphocytes Absolute Auto 2500 /uL (1100-4500); Lymphocytes Percent Auto 17.2 % (25-40); Mean Corpuscular HGB Conc 32.9 % (30-36); Mean Corpuscular Hemoglobin 26.4 PG (26-34); Mean Corpuscular Volume 80.3 fL (80-100); Monocytes Absolute Auto 1400 /uL (0-900); Monocytes Percent Auto 9.8 % (3-14); Neutrophils Absolute Auto 10300 /uL (1500-7000); Neutrophils Percent Auto 71.8 % (50-75); Platelet Count 206 X10^3/uL (150-400); Red Blood Cell Count 4.37 X10^6/uL (4.5-5.9); Red Cell Distribution Width 12.6 % (11.6-14.8); White Blood Cell Count 14.4 X10^3/uL (4.5-11.0)
[2022-10-17 07:26] LABS: INR 1.5 (0.9-1.3); Prothrombin Time 17.6 SECONDS (10.1-12.7)
[2022-10-17 07:32] LABS: BUN Creatinine Ratio 13.4 (6-22); Blood Urea Nitrogen 9 mg/dL (9-20); Calcium 8.4 mg/dL (8.4-10.2); Carbon Dioxide 23 mmol/L (22-32); Chloride 103 mmol/L (98-107); Cholesterol 135 mg/dL (140-199); Estimated Glomerular Filt Rate > 60 mL/min (>60); Gamma Glutamyl Transpeptidase 35 U/L (15-73); Glucose 242 mg/dL (70-100); HDL Cholesterol 30 mg/dL (40-60); HEMOLYSIS < 15 (0-50); LDL Cholesterol Calculated 92 mg/dL (<100); Magnesium 1.5 mg/dL (1.6-2.3); Potassium 3.7 mmol/L (3.4-5.1); Sodium 134 mmol/L (137-145); Triglycerides 66 mg/dL (35-150)
[2022-10-17 07:43] LABS: Troponin I < 0.012 ng/mL (0.01-0.034)
--- NOTE | 2022-10-17 08:00 | DI.CT.S_ITS ---
PROCEDURE: CT ANGIO CHEST PE PROTOCOL INDICATIONS: Previous exam unreadable? shortness of breath TECHNIQUE: After the administration of intravenous contrast, 2 mm thick sections acquired from the pulmonary apices to the posterior costophrenic angles. 3-dimensional maximum intensity projection (MIP) coronal and sagittal reformats were then acquired through the thorax. For radiation dose reduction, the following was used: automated exposure control, adjustment of mA and/or kV according to patient size. COMPARISON: [facility], CT, CT ANGIO CHEST PE PROTOCOL, 10/16/2022, 16:09. FINDINGS: Image quality: Bolus is suboptimal for evaluation of pulmonary embolus limiting evaluation of the distal vessels. Pulmonary arteries: Within limits of this exam the pulmonary artery is along the upper limits of normal in a slightly enlarged measuring 3.3 cm. Questionable peripheral filling defect of a subsegmental vessel of the lateral basal segment of the left lower lobe (series 4, image 94) Lungs and pleura: Lungs are clear. No pleural effusions or pneumothorax. Central and peripheral airways are patent. Mild basilar atelectasis. Calcified granuloma of the left upper lobe. Mediastinum: Heart size is normal, without pericardial effusion. Mild coronary vascular calcifications. No evidence of right heart strain. No mediastinal or hilar adenopathy. Ascending aorta measures 4.0 cm at the level of the right aortic arch. Esophagus is normal in caliber, without hiatal hernia. Bones and chest wall: No suspicious bony lesions. Ribs and thoracic spine appear intact throughout. Thyroid gland is unremarkable. No axillary or supraclavicular adenopathy. Abdomen: Stable adrenal nodule of the right adrenal gland. Punctate calcifications within the spleen consistent with prior granulomatous disease. IMPRESSION: No central pulmonary embolus or evidence of right heart strain. Given limitations of this examination there is questionable subsegmental with filling defect of the left lower lobe. Mild dilation of the main pulmonary artery measuring 3.3 cm. Recommend clinical correlation for pulmonary hypertension. Dictated by: Oni Alamo D.O. on 10/17/2022 at 9:08 Approved by: Oni Alamo D.O. on 10/17/2022 at 9:31
[2022-10-17] MEDS: AMLODIPINE 5 MG TABLET 10 MG PO (09:26)
[2022-10-17] MEDS: APIXABAN 5 MG TABLET PO ×2 (09:26→20:48)
[2022-10-17] MEDS: INSULIN LISPRO 100 UNIT/ML 3ML VIAL SUBCUT ×4 (09:31→20:48)
[2022-10-17] MEDS: MAGNESIUM CHLORIDE 64 MG TABLET 128 MG PO (09:34)
[2022-10-17] MEDS: VANCOMYCIN 1,500 MG/300 ML PIGGYBACK 200 MG IV ×2 (12:06→19:49)
[2022-10-17] MEDS: HYDROCODONE/ACET 5/325 TABLET 1 TAB PO (14:46)
--- NOTE | 2022-10-17 15:01 | CM.DANOTE ---
Discharge Assessment Note: Case reviewed, met with patient and son in his room. Introduced self and role. Payer:[employer] Medicare Advantage and Medicaid PCP: 52 year old male admitted yesterday with abdominal pain, sepsis, abdominal cellulitis. Patient lives in [facility] and was up here visiting his son in [place]. Patient works, drives, independent and active. Life Partner Ivelisse. No dc needs determined. Plan: When medically cleared, discharge home to care of spouse. 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 No History Provided By Patient Prior Living Arrangements House Household Members significant other Type of transporation used prior to Drives own vehicle admit Independent with ADL's Yes Is patient alert and oriented? Yes Caregiver for Another No Barriers to Discharge No Discharge Plan Home Referrals Initiated None needed Review Status In Process Next Review Type Continued Stay Review
[2022-10-17] MEDS: cefTRIAXone 2,000 MG in SODIUM CHLORIDE 0.9% 100 ML 200 MG IV (16:33)
[2022-10-17] MEDS: HYDROMORPHONE 0.5 MG INJ IV (16:45)
--- NOTE | 2022-10-17 18:22 | P.PN_ITS ---
Subjective Subjective Interval history: 52-year-old gentleman with diabetes mellitus type 2, insulin dependent, h ypertension, dyslipidemia, prior right lower extremity DVT on Eliquis anticoagulation who was admitted last night with lower abdominal wall cellulitis with a draining superficial skin abscess, chest pain/shortness of breath and sepsis, as evidenced by fever, tachycardia, tachypnea, leukocytosis, and lactic acidosis. Initial CTPA was done with indeterminate result secondary to inadequate bolus. Repeat CTPA was done this morning. Patient reports he is feeling quite a bit better today. He reports no further chest pain or shortness of breath. His significant other no that his lower abdomen is much less firm. It has been draining some purulent material. With regard to his previous DVT he is uncertain if he is had any hypercoagulability testing done. He states that was diagnosed in the emergency department, and he has since changed primary care providers. His new PCP has not yet received his records related to the DVT. With regard to his diabetes, he initially reported to me that he had lost his insurance and thus could no longer get his insulin. Then he clarified that he additionally was not really using the insulin like he knew he should. He struggled with using the mealtime insulin the most. Exam Vital Signs (past 8 hours): - 10/17/22 14:00 Temperature 97.2 F L Pulse Rate 92 H Respiratory Rate 22 Blood Pressure 123/68 Pulse Oximetry 97 Oxygen Flow Rate 0 Oxygen Delivery Method CPAP Oxygen Flow Rate 0 Narrative Exam Narrative: GEN: Very pleasant middle-aged male, Alert and oriented x 3, NAD HEENT:NC, Face symmetric CHEST: Respiratory excursions symmetric, CTAB CV: RRR, no M/R/G ABD: Soft, NT/ND, BT present in all 4 quadrants, body habitus limits exam EXTR: warm, well perfused, no C/C/E SKIN: warm and dry, no rash, right at the border between his inferior left lower pannus and his groin has a small open abscess which is draining purulent material. Upon palpation there is some mild surrounding induration. No warmth, no erythema. I was able to express a small amount of purulent material as well. There does not appear to be any significant abscess cavity. NEURO: Alert and oriented x 3, nonfocal Objective Labs 10/17/22 06:49 10/17/22 06:49 Labs: Laboratory Results - last 24 hr 10/16/22 10/16/22 10/16/22 20:33 21:14 21:14 WBC RBC Hgb Hct MCV MCH MCHC RDW Plt Count Neut % (Auto) Lymph % (Auto) [place] % (Auto) Eos % (Auto) Baso % (Auto) Neut # (Auto) Lymph # (Auto) [place] # (Auto) Eos # (Auto) Baso # (Auto) ESR 46 H PT INR Sodium Potassium Chloride Carbon Dioxide BUN Creatinine Estimated GFR BUN/Creatinine Ratio Glucose Calcium Magnesium GGT Troponin I C-Reactive Protein 17.1 H Triglycerides Cholesterol LDL Cholesterol, Calc HDL Cholesterol Nasal Screen MRSA (PCR) Not detected 10/17/22 10/17/22 10/17/22 06:49 06:49 06:49 WBC 14.4 H RBC 4.37 L Hgb 11.6 L Hct 35.1 L MCV 80.3 MCH 26.4 MCHC 32.9 RDW 12.6 Plt Count 206 Neut % (Auto) 71.8 Lymph % (Auto) 17.2 L [place] % (Auto) 9.8 Eos % (Auto) 0.6 L Baso % (Auto) 0.6 Neut # (Auto) 08695 H Lymph # (Auto) 2500 [place] # (Auto) 1400 H Eos # (Auto) 100 Baso # (Auto) 100 ESR PT 17.6 H INR 1.5 H Sodium 134 L Potassium 3.7 Chloride 103 Carbon Dioxide 23 BUN 9 Creatinine 0.67 Estimated GFR > 60 BUN/Creatinine Ratio 13.4 Glucose 242 H Calcium 8.4 Magnesium 1.5 L GGT Troponin I < 0.012 C-Reactive Protein Triglycerides 66 Cholesterol 135 L LDL Cholesterol, Calc 92 HDL Cholesterol 30 L Nasal Screen MRSA (PCR) 10/17/22 06:49 WBC RBC Hgb Hct MCV MCH MCHC RDW Plt Count Neut % (Auto) Lymph % (Auto) [place] % (Auto) Eos % (Auto) Baso % (Auto) Neut # (Auto) Lymph # (Auto) [place] # (Auto) Eos # (Auto) Baso # (Auto) ESR PT INR Sodium Potassium Chloride Carbon Dioxide BUN Creatinine Estimated GFR BUN/Creatinine Ratio Glucose Calcium Magnesium GGT 35 Troponin I C-Reactive Protein Triglycerides Cholesterol LDL Cholesterol, Calc HDL Cholesterol Nasal Screen MRSA (PCR) [facility] Medical History Diabetes Dyslipidemia associated with type 2 diabetes mellitus Essential hypertension History of DVT of lower extremity Hypercholesteremia Hypertension Surgical History History of circumcision Family History Mother Cancer Hypertension Diabetes mellitus Father No problems noted. Social History household members: significant other Smoking Status: Current every day smoker alcohol intake: never Assessment & Plan Assessment & Plan narrative: 1. Sepsis Patient presented meeting criteria for sepsis as noted above. Sepsis physiology has since resolved. White blood cell count remains relatively stable at 14.4, up very slightly from 14.1 yesterday. No bacteremia. Etiology is a lower abdominal wall/upper groin abscess. Continue current care. 2. Lower abdominal wall abscess with surrounding induration/cellulitis Patient notes a prior history of ?boils that started in hair follicles in his axilla. He did have 1 prior episode of an abscess in his groin. He denies a prior diagnosis of hidradenitis. However I do question whether that may be part of his issue. He was initially placed on meropenem. Culture is positive for s taph aureus. Sensitivities are pending. Will change to Rocephin and vancomycin pending sensitivities. 3. Chest pain/shortness of breath Certainly given his prior DVT, thromboembolism is a concern. CT scan as noted was repeated this morning. There is a possible small subsegmental filling defect on the CT, raising possibility of a subsegmental PE. However, my suspicion is this probably occurred at the time of his initial DVT. Reports significant improvement in his symptoms, but he has not had any new or different treatment for venous thromboembolism. I suspect that his chest pain and jake rtness of breath were due more to his sepsis physiology and not PE. However, will obtain lower extremity venous duplex ultrasounds bilaterally. He has a known prior right lower extremity DVT. He reports there was extension up into his thigh. If there appears to be new clot or extension, may be reasonable to transition to an alternative anticoagulant. As above, he is uncertain whether he underwent a hypercoagulable workup. He was due for screening colonoscopy as well. This will be followed up by his outpatient physician. 4. Diabetes mellitus, type 2, uncontrolled Long conversation with the patient about higher risk for renal complications given that he is . He did ultimately agree that he could consistently take Lantus once a day but would be less apt to do short-acting insulin. He has also been working on weight loss. Used to weigh over 500 lb and is down to 360 lb is continuing to work on his weight loss journey as well. He tells me he gained significant weight after his father's and felt that it was due to not knowing how to process grief. He is committed to working on getting his health improved. He notes his last A1c was 13 or 14%. He was pl aced on 20 units of Lantus on admission. He tells me he was on 50 units prior. Did receive a total of 28 units of sliding scale. Will increase up to 35 units for tonight. Continue to adjust as needed. 5. Hypertension Continue amlodipine. May benefit from an SONIA inhibitor given his underlying d iabetes and higher risk for nephropathy. 6. Class 3 obesity BMI is presently 46.0. As noted, he used to weigh upwards of 500 lb. He has been actively working on weight loss. Encouraged him to continue to do so as his diabetes would benefit in his overall health would benefit. 7. Hypomagnesemia Will replete Code status Full Prophylaxis On apixaban Disposition Possible discharge tomorrow. He will need insulin and likely other supplies filled at discharge. Patient is in process of moving from [place] to [place]. He will be establishing with another PCP locally. He was due for screening colonoscopy in mid November but will plan to reschedule that here locally. Quality VTE Deep Vein Thrombosis/Pulmonary Embolism Present on Admission: No
[2022-10-17] MEDS: INSULIN GLARGINE 100 UNIT/ML 3ML PEN 35 UNIT SUBCUT (20:48)
[2022-10-17] MEDS: ATORVASTATIN 20 MG TABLET 80 MG PO (20:49)
[2022-10-18] VITALS: BP 116/56; PULSE 98; RESP 18; TEMP 37.1; O2SAT 98
[2022-10-18] MEDS: VANCOMYCIN 1,500 MG/300 ML PIGGYBACK 200 MG IV (03:08)
[2022-10-18 04:00] VITALS: BP 113/56; PULSE 89; RESP 22; TEMP 36.1; O2SAT 97
[2022-10-18] MEDS: VANCOMYCIN PER PHARMACY 1 REQUEST MISC (06:11)
[2022-10-18 06:16] LABS: Add Manual Diff / Slide Review NO; Basophils Absolute Auto 100 /uL (0-100); Basophils Percent Auto 0.7 % (0-2); Eosinophils Absolute Auto 100 /uL (0-450); Hematocrit 34.8 % (41-53); Hemoglobin 11.6 g/dL (13.5-17.5); Lymphocytes Absolute Auto 2300 /uL (1100-4500); Lymphocytes Percent Auto 18.5 % (25-40); Mean Corpuscular HGB Conc 33.2 % (30-36); Mean Corpuscular Hemoglobin 26.8 PG (26-34); Mean Corpuscular Volume 80.6 fL (80-100); Monocytes Absolute Auto 1200 /uL (0-900); Monocytes Percent Auto 9.6 % (3-14); Neutrophils Absolute Auto 8900 /uL (1500-7000); Neutrophils Percent Auto 70.2 % (50-75); Platelet Count 222 X10^3/uL (150-400); Red Blood Cell Count 4.32 X10^6/uL (4.5-5.9); Red Cell Distribution Width 12.6 % (11.6-14.8); White Blood Cell Count 12.6 X10^3/uL (4.5-11.0)
[2022-10-18 06:24] LABS: BUN Creatinine Ratio 14.1 (6-22); Blood Urea Nitrogen 9 mg/dL (9-20); Calcium 8.5 mg/dL (8.4-10.2); Carbon Dioxide 22 mmol/L (22-32); Chloride 103 mmol/L (98-107); Estimated Glomerular Filt Rate > 60 mL/min (>60); Glucose 249 mg/dL (70-100); HEMOLYSIS < 15 (0-50); Potassium 3.8 mmol/L (3.4-5.1); Sodium 134 mmol/L (137-145)
[2022-10-18 08:00] VITALS: BP 120/70; PULSE 84; RESP 20; TEMP 37.6; O2SAT 97
--- NOTE | 2022-10-18 08:00 | DI.US.S_ITS ---
PROCEDURE: US PERIPH VENOUS LOW EXTREM BI INDICATIONS: EDEMA; HX DVT TECHNIQUE: Real-time imaging, as well as color and pulse Doppler interrogation, were performed of the deep veins of both legs from the inguinal ligament to the popliteal fossa. COMPARISON: None. FINDINGS: Right: The common femoral, femoral and popliteal veins are normally compressible, and free of intraluminal thrombus. Color and pulse Doppler demonstrate normal phasic intravascular flow. There is normal augmentation response to distal compression maneuver. Left: The common femoral, femoral and popliteal veins are normally compressible, and free of intraluminal thrombus. Color and pulse Doppler demonstrate normal phasic intravascular flow. There is normal augmentation response to distal compression maneuver. IMPRESSION: Negative examination for DVT. Dictated by: Anand Miranda M.D. on 10/18/2022 at 16:02 Approved by: Anand Miranda M.D. on 10/18/2022 at 16:02
[2022-10-18] MEDS: APIXABAN 5 MG TABLET PO (08:58)
[2022-10-18] MEDS: AMLODIPINE 5 MG TABLET 10 MG PO (08:58)
[2022-10-18] MEDS: INSULIN LISPRO 100 UNIT/ML 3ML VIAL SUBCUT (09:00)
[2022-10-18] MEDS: SODIUM CHLORIDE 0.9% 1,000 ML 150 ML IV (09:01)
--- NOTE | 2022-10-18 10:29 | P.DS_ITS ---
History of Present Illness History of Present Illness Date Patient Seen: 10/18/22 Time Patient Seen: 10:29 Chief complaint: Chest pain Narrative: Per admitting provider, Oni Cabezas is a 52-year-old male with history of insulin-dependent diabetes, hypertension, dyslipidemia, prior DVT (rtLE) on Eliquis presented to ED with several complaints, left-sided chest pain, intermittent shortness of breath, fever, body aches, chills, nausea increased urination, urinary incontinence, worsening left lower abdominal pain fullness/hard with drainage x 1 week, some increased swelling and pain in his left leg. Patient's states that the pat ient has been noncompliant with medications. Reports last A1c 14 -approximately 2 months ago. He denies prior infections of his skin.? Patient states no prior histories of strokes or heart attacks, no chronic kidney disease, denies any cardiac stents. Lives in [place], here visiting family.?Allergy to lisinopril- anaphylaxis. States his primary care is through [facility] in [place].? On admit patient continues to complain abdominal pain, the fever of 103.9, 148/102, 106, 26, O2 sat 100% on room air, patient is in moderate distress and pain. Continues to complain of fever, body aches, chills, nausea, abdominal pain. WBC 14.1, neutrophils 10,200, mono 1200, baso 200, initial lactate 2.8, repeat 3.5, procalcitonin negative, glucose 334, PT 15.6, INR 1 4, alk-phos 154, CK 216, BNP normal, COVID negative, UA negative, troponin x2 negative patient meets severe sepsis criteria for SIRS, sofa score 0. No gap patient is not in DKA CTA was reported as unreasonable to rule out PE, abdomen/pelvis CT soft tissue inflammation overlying left flank extending into the left inguinal region with reactive inguinal?adenopathy, large periumbilical fat containing hernia, and Indeterminate 3 cm right adrenal nodule. Chest x-ray hypoventilation. I personally reviewed all imaging studies and EKG. EKG: Sinus tachycardia rate [address] or T-wave changes. On admit patient denies changes in vision, difficulty swallowing, speech impairment, weakness, numbness, tingling, difficulty with ambulation, recent falls, head injury, LOC, cough, recent exposure to illness, vomiting, urinary retention, dysuria, hematuria, bowel changes, constipation, incontinence, melena, rashes, recent changes to medication, illness, injury, or trauma. Patient admitted for chest pain, sepsis secondary to abdominal cellulitis abscess, hyperglycemia. Discharge Providers Provider Date of admission: 10/16/22 18:11 Discharge Date: 10/18/22 Consults: 10/16/22 20:35 Consult to Dietitian, Adult Urgent Comment: Reason For Exam: DM/abcess/BMI 46.2 Discharge provider: Darryl New DO Summary Hospital Course Discharge Diagnosis: Please see hospital course by problem list noted below Hospital Course: 1. Sepsis ruled out, acute metabolic encephalopathy, resolved SOFA score <2 based on admission and hospital course. Concern for sepsis initially given acute encephalopathy. He was given fluids and antibiotic therapi es as noted below with improvement. 2. Lower abdominal wall abscess with surrounding induration/cellulitis He was initially placed on meropenem and vancomycin was added after initial culture results. Initial imaging showed no drainable fluid collection. He had improvement with antibiotic therapies, and had minimal pain with marked improvement. There may be a component of hydradenitis with his prior history of such, however this would be an atypical location and at this time no surgical management is recommended. Given cultures, patient was discharged on oral doxycycline. 3. Chest pain/shortness of breath Certainly given his prior DVT, thromboembolism was a concern.? CT scan was repeated this morning.? There is a possible small subsegmental filling defect on the CT, raising possibility of a subsegmental PE.? However, my suspicion is this probably occurred at the time of his initial DVT.? Reports significant improvement in his symptoms, but he has not had any new or different treatment for venous thromboembolism and he completed at least 3 months of anticoagulation.? I suspect that his chest pain and shortness of breath were due more to his sepsis physiology and not PE.? Lower extremity ultrasound here was negative for DVT. Given improvement in symptoms, and low likelihood of ongoing clot, anticoagulation was not re-initiated. Follow up with PCP is recommended. 4. Diabetes mellitus, type 2, uncontrolled Patient to continue metformin, januvia at home. After discussion he was agreeable to starting lantus, discharged on 35 U nightly. PCP follow up recommended for continued diabetes adjustment. 5. Hypertension Continue amlodipine.? May benefit from an SONIA inhibitor given his underlying diabetes and higher risk for nephropathy. Defer to PCP. 6. Class 3 obesity BMI is presently 46.0. The patient is at much higher risk for medical and surgical complications because of his obesity. This increases the difficulty and complexity of medical and surgical interventions and increases the chances of poor outcomes such as morbidity and mortality. 7. Hypomagnesemia repleted during the course of admission. Time Spent with Patient Time spent: Greater than 30 minutes Exam Vital Signs (past 8 hours): - 10/18/22 04:00 10/18/22 08:00 Temperature 97.0 F L 99.7 F H Pulse Rate 89 84 Respiratory Rate 22 20 Blood Pressure 113/56 L 120/70 Pulse Oximetry 97 97 Oxygen Flow Rate 0 Oxygen Delivery Method CPAP Oxygen Flow Rate 0 Narrative Exam Narrative: GEN: Very pleasant middle-aged male, Alert and oriented x 3, NAD HEENT:NC, Face symmetric CHEST: Respiratory excursions symmetric, CTAB CV: RRR, no M/R/G ABD: Soft, NT/ND, BT present in all 4 quadrants, body habitus limits exam EXTR: warm, well perfused, no C/C/E SKIN: warm and dry, no rash, right at the border between his inferior left lower pannus and his groin has a small lesion, without active drainage or erythema, and minimally tender. No drainable fluid with palpation today. NEURO: Alert and oriented x 3, nonfocal Objective Labs 10/18/22 05:30 10/18/22 05:30 Labs: Laboratory Results - last 24 hr 10/18/22 10/18/22 05:30 05:30 WBC 12.6 H RBC 4.32 L Hgb 11.6 L Hct 34.8 L MCV 80.6 MCH 26.8 MCHC 33.2 RDW 12.6 Plt Count 222 Neut % (Auto) 70.2 Lymph % (Auto) 18.5 L [place] % (Auto) 9.6 Eos % (Auto) 1.0 L Baso % (Auto) 0.7 Neut # (Auto) 8900 H Lymph # (Auto) 2300 [place] # (Auto) 1200 H Eos # (Auto) 100 Baso # (Auto) 100 Sodium 134 L Potassium 3.8 Chloride 103 Carbon Dioxide 22 BUN 9 Creatinine 0.64 L Estimated GFR > 60 BUN/Creatinine Ratio 14.1 Glucose 249 H Calcium 8.5 PFSH Medical History Diabetes Dyslipidemia associated with type 2 diabetes mellitus Essential hypertension History of DVT of lower extremity Hypercholesteremia Hypertension Surgical History History of circumcision Family History Mother Cancer Hypertension Diabetes mellitus Father No problems noted. Social History household members: significant other Smoking Status: Current every day smoker alcohol intake: never Discharge Plan Discharge Plan Patient Disposition: Home Provider Discharge Comment: You were admitted to the hospital with an infection near your groin. This improved with antibotics, nothing to drain surgically. Continue antibiotics at home. Discharge orders & Medications Prescriptions: New insulin glargine [Lantus Solostar U-100 Insulin] 100 unit/mL (3 mL) insulin pen 35 unit SUBCUT QPM 90 Days Qty: 31.5 0RF doxycycline hyclate 100 mg tablet 100 mg PO BID 7 Days Qty: 14 0RF (DME) pen needle, diabetic [Pen Needle] 31 gauge x 3/16 needle See Rx Instructions .Route Qty: 100 0RF Rx Instructions: For use with insulin pen Continued atorvastatin 40 mg tablet 80 mg PO BEDTIME amlodipine 10 mg tablet 10 mg PO DAILY Januvia 100 mg tablet 100 mg PO DAILY metformin 1,000 mg tablet 1,000 mg PO BID 90 Days Qty: 180 0RF Discontinued Eliquis 5 mg tablet 5 mg PO DAILY Diet/Activity/Treatments Diet: Diet as Tolerated and Carb-consistent/Diabetic Activity: As tolerated. Visit Report/Discharge Packet Instructions: Complications of Type 2 Diabetes, DI for Diabetes Type 1 -- Adult, DI for Diabetes Type 2 Stand Alone Forms: Patient Portal/API, Stroke Signs & Symptoms Discharges patient from system. Discharge Date/Time: 10/18/22 11:20 Quality VTE Deep Vein Thrombosis/Pulmonary Embolism Present on Admission: No
--- NOTE | 2022-10-18 11:08 | CM.DPC ---
DCP Discharge Home Per MD, pt's cultures returned and pt medically stable to d/c home on oral meds. Pt's son lives locally and pt's plan is to eventually move to [place] and set up local PCP from [facility] but will d/c back to [place] while working on a plan to move closer up here near his son. No identified barriers to discharge. Plan: Patient to d/c home today on oral Rx and local son can provide transport if needed and no further SW needs at this time. MELINA Yadav
--- NOTE | 2022-10-18 11:31 | PC.NURSE ---
Discharge Note Patient A&O, VSS, RA, no complaints of pain/discomfort. Discharge packet reviewed with patient, all questions/concerns addressed. PIV/TELE discontinued. Patient able to dress self and pack all belongings. Patient taken down to POV. 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
[2022-10-19 07:43] LABS: x Labcorp Estim. Avg Glu (eAG) 364 mg/dL (.); x Labcorp Hemoglobin A1c 14.3 % (4.8-5.6)
== END 2022-10-18 11:20 | disposition home or self-care (01) | DRG 71 ==
LOC: ED 18:10 → AC 18:12
PROVIDERS: Nurse Practitioner Family; Admitting Provider Family Medicine; Emergency Provider Emergency Medicine; Referring Provider Emergency Medicine; Visit Provider Family Medicine
DX: G93.41 Metabolic encephalopathy (principal); L03.311 Cellulitis of abdominal wall; Z68.41 Body mass index [BMI] 40.0-44.9, adult; E66.01 Morbid (severe) obesity due to excess calories; E78.5 Hyperlipidemia, unspecified; E11.65 Type 2 diabetes mellitus with hyperglycemia; I10 Essential (primary) hypertension; E83.42 Hypomagnesemia; R07.9 Chest pain, unspecified; F17.210 Nicotine dependence, cigarettes, uncomplicated; Z79.01 Long term (current) use of anticoagulants; Z86.718 Personal history of other venous thrombosis and embolism; Z20.822 Contact with and (suspected) exposure to COVID-19; Z79.84 Long term (current) use of oral hypoglycemic drugs
CPT/HCPCS: 36415; 71045; 71275; 74177; 80048; 80053; 80061; 81001; 82550; 82553; 82962; 82977; 83036; 83605; 83690; 83735; 83880; 84145; 84484; 85025; 85610; 85651; 85730; 86140; 87040; 87070; 87075; 87077; 87147; 87186; 87205; 87635; 87797; 93005; 93306; 93970; 94660; 96365; 99285; C9803; J0696; J1170; J1815; J2185; J2543; Q9957; Q9967